=== PATIENT | female | born 1985 | race Hispanic/Latino ===

== ENCOUNTER 2019-02-10 21:49 | Emergency (ER) | payer BC ==
[2019-02-10] MEDS ORDERED: KETOROLAC TROMETHAMINE 30MG/ML ONE (22:22)
[2019-02-10] MEDS ORDERED: ONDANSETRON HCL 4 MG/2 ML VIAL ONE (22:22)
[2019-02-10] MEDS ORDERED: SODIUM CHLORIDE 0.9% 1000ML 2,000 ML IV ONE (22:23)
[2019-02-10 22:26] LABS: BASOPHILS % (AUTO) 0.9 % (0.0-5.0); EOSINOPHILS % (AUTO) 4.6 % (0.0-8.0); HEMATOCRIT 46.2 % (36-48); LYMPHOCYTES % (AUTO) 23.8 % (21.0-51.0); MEAN CORPUSCULAR HEMOGLOBIN 32.2 pg (27.0-33.0); MEAN CORPUSCULAR HGB CONC 34.8 g/dL (32.0-36.0); MEAN CORPUSCULAR VOLUME 92.4 fL (79-99); MONOCYTES % (AUTO) 7.3 % (3.0-13.0); NEUTROPHILS % (AUTO) 63.4 % (40.0-77.0); NUCLEATED RED BLOOD CELLS 0.1 % (0.0-0.19); PLATELET COUNT (AUTO) 108 K/uL (130-400); RED CELL DISTRIBUTION WIDTH 12.6 % (11.0-15.5); WHITE BLOOD COUNT (AUTO) 5.6 K/uL (4.8-10.8)
[2019-02-10 22:33] LABS: CREATININE 0.7 mg/dL (0.5-1.5); POTASSIUM 3.5 mmol/L (3.5-5.1)
[2019-02-10 22:50] LABS: APPEARANCE,URINE Clear (CLEAR); BILIRUBIN,URINE Negative (NEGATIVE); COLOR,URINE Yellow (YELLOW); GLUCOSE, URINE (UA) Negative (NEGATIVE); KETONES,URINE Negative (NEGATIVE); LEUKOCYTE ESTERASE ,URINE Negative (NEGATIVE); NITRATE,URINE Negative (NEGATIVE); OCCULT BLOOD,URINE Negative (NEGATIVE); PH,URINE 7.5 (5.0-8.0); PROTEIN,URINE Negative (NEGATIVE)
[2019-02-10] MEDS ORDERED: DiphenhydrAMINE HCL 50 MG/ML VIAL ONE (22:55)
[2019-02-10] MEDS ORDERED: METOCLOPRAMIDE 10 MG/2 ML VIAL ONE (22:55)
[2019-02-10 22:56] LABS: HCG,QUAL RESULT NEGATIVE (NEGATIVE)
== END 2019-02-11 01:00 | disposition home or self-care (01) ==
LOC: EDH 21:49
DX: R51 Headache (principal); E86.9 Volume depletion, unspecified; M62.838 Other muscle spasm; R94.6 Abnormal results of thyroid function studies; Z88.0 Allergy status to penicillin
CPT/HCPCS: 36415; 80048; 81003; 81025; 82550; 84443; 85025; 93971; 96361; 96374; 96375; 99285; J1200; J1885; J2405; J2765; J7030